=== PATIENT | male | born 1965 | race Caucasian/White ===

== ENCOUNTER 2021-02-27 09:09 | Observation (INO) ==
[2021-02-27] MEDS ORDERED: ASPIRIN CHEW 81 MG TABLET PO STA (09:40)
[2021-02-27] MEDS ORDERED: NITROGLYCERIN SL 0.4 MG TABLET SL STA (09:40)
[2021-02-27 09:55] LABS: Basophils % 0.3 % (0.0-0.8); Eosinophils # 0.1 10*3/uL (0.0-0.87); Eosinophils % 1.2 % (0.00-10.9); Hematocrit 45.7 VOL% (42.0-52.0); Hemoglobin 14.8 GM/DL (14.0-18.0); Immature Granulocytes % 0.3 %; Immature Granulocytes Absolute 0.02 #; Lymphocytes # 1.4 10*3/uL (1.4-4.0); Lymphocytes % 20.2 % (21.2-54.2); Mean Corpuscular HGB Conc 32.4 GM/DL (32-36); Mean Corpuscular Volume 87.5 FL (87-102); Mean Platelet Volume 10.7 FL (9.6-12.0); Monocytes % 7.8 % (1.7-12.7); Neutrophils % 70.2 % (38.7-73.9); Platelet Count 322 T/CUMM (130-400); Red Blood Count 5.22 MC/CUMM (3.8-5.5); Red Cell Distribution Width 12.1 % (9.3-17.3); White Blood Count 6.8 T/CUMM (4-12)
[2021-02-27 10:01] LABS: Alanine Aminotransferase 35 U/L (16-61); Albumin 3.8 G/DL (3.4-5.0); Alkaline Phosphatase 192 U/L (45-117); Aspartate Amino Transferase 19 U/L (0-37); Blood Urea Nitrogen 16 MG/DL (7-18); Carbon Dioxide 28 MMOL/L (21-32); Estimated Glom Filtration Rate 103 ML/MIN; Glucose 341 MG/DL (74-106); Osmolality,Calculated 290.5 MOS/KG (273-304); Potassium 3.6 MMOL/L (3.5-5.1); Sodium 139 MMOL/L (136-145); Total Protein 7.7 G/DL (6.4-8.2); Troponin I < 0.015 NG/ML (0.00-0.045)
[2021-02-27 10:04] LABS: PT Patient Result 10.5 SECS (9.8-11.9); Partial Thromboplastin Time 27.4 SECS (23.9-33.8)
[2021-02-27] MEDS ORDERED: ONDANSETRON 4 MG/2 ML VIAL IV PRN (11:58)
[2021-02-27] MEDS ORDERED: ACETAMINOPHEN 325 MG TABLET PO PRN (11:58)
[2021-02-27] MEDS ORDERED: DOCUSATE SODIUM 100 MG CAPSULE PO PRN (11:58)
[2021-02-27] MEDS ORDERED: GLUCAGON 1 MG VIAL IM PRN (11:58)
[2021-02-27] MEDS ORDERED: DEXTROSE 50% 25 GM/50 ML VIAL IV PRN (11:58)
[2021-02-27] MEDS ORDERED: NITROGLYCERIN SL 0.4 MG TABLET SL PRN (12:17)
[2021-02-27] MEDS ORDERED: SODIUM CHLORIDE 0.9% 1,000 ML IV STA (12:43)
[2021-02-27] MEDS: INSULIN LISPRO 100 UNIT/ML SUBCUT SCH ×2 (16:43→21:52)
[2021-02-27] MEDS ORDERED: ENOXAPARIN 40 MG/0.4 ML SYRINGE SUBCUT SCH (21:00)
[2021-02-27] MEDS: ISOSORBIDE MONONITRATE 20 MG TABLET PO SCH (21:47)
[2021-02-27] MEDS: METOPROLOL TARTRATE 50 MG TABLET PO SCH (21:47)
[2021-02-28 05:25] LABS: Osmolality,Calculated 280.8 MOS/KG (273-304); Potassium 3.7 MMOL/L (3.5-5.1)
[2021-02-28] MEDS: INSULIN LISPRO 100 UNIT/ML SUBCUT SCH ×2 (08:37→12:16)
[2021-02-28] MEDS ORDERED: glyBURIDE 2.5 MG TABLET PO SCH (09:00)
[2021-02-28] MEDS: ISOSORBIDE MONONITRATE 20 MG TABLET PO SCH ×2 (10:31→11:02)
[2021-02-28] MEDS: ATORVASTATIN 80 MG TABLET PO SCH ×2 (10:31→10:55)
[2021-02-28] MEDS: METOPROLOL TARTRATE 50 MG TABLET PO SCH ×2 (10:31→10:55)
[2021-02-28] MEDS: PANTOPRAZOLE 40 MG TABLET PO SCH ×2 (10:32→10:54)
[2021-02-28] MEDS: CLOPIDOGREL 75 MG TABLET PO SCH ×2 (10:32→10:54)
[2021-02-28] MEDS: lisinopriL 20 MG TABLET PO SCH ×2 (10:32→10:55)
[2021-02-28] MEDS: amLODIPine 10 MG TABLET PO SCH ×2 (10:32→10:54)
[2021-02-28 12:18] VITALS: BP 117/71
[2021-03-01] MEDS ORDERED: ASPIRIN EC 81 MG TABLET PO SCH (09:00)
== END 2021-02-28 14:30 | disposition home or self-care (01) ==
LOC: N.ED 09:09 → N.EDINP 09:09 → N.TELEN 17:31
PROVIDERS: ADMIT Internal Medicine; ATTEND Internal Medicine